=== PATIENT | female | born 1940 | race Caucasian/White ===

== ENCOUNTER 2018-02-02 16:20 | Emergency (ER) | payer MEDICARE, BC ==
[2018-02-02] MEDS ORDERED: DIPH,PERTUS(ACELL)TETVAC-LF 0.5 ML VIAL IM ONE (16:38)
[2018-02-02 16:42] VITALS: BP 136/67; PULSE 72; RESP 16; TEMP 98
--- NOTE | 2018-02-02 16:49 | ED ---
Animal Bite HPI - General Chief Complaint: Animal Bite Stated Complaint: Dog Bite Time Seen by Provider: 02/02/18 16:24 Source: patient, family, RN notes reviewed Mode of arrival: ambulatory Limitations: no limitations - History of Present Illness Initial Comments: This is a 77-year-old female who presents to the emergency department with chief complaint of dog bite. Patient is accompanied by her son-in-law. She states that prior to arrival her dog got into a fight with a neighborhood dog. She attempted to break it up and was bit by the neighborhood dog. She states that she sustained two bite wounds to her left hand. They state that they know where the dog lives and that it was off of its leash, but did not approach the owners. They state the dog is a small breed and appears to be a mutt. They know that the dog is not a stray. Patient states she is not up-to-date with her tetanus vaccination. She states that she is ALLERGIC to penicillins. - Related Data Home Medications Medication Instructions Recorded Confirmed Carbidopa-Levodopa 25-100 mg 2 tab PO BID@0600,1200 11/05/14 09/23/16 [Sinemet 25-100 mg] Cholecalciferol [Vitamin D3] 1,000 unit PO BID 11/05/14 09/23/16 Digoxin [Lanoxin] 125 mcg PO QAM 11/05/14 09/23/16 Lovastatin [Mevacor] 80 mg PO HS 11/05/14 09/24/16 Amantadine HCl [Symmetrel] 100 mg PO BID@0600,1200 06/30/15 09/23/16 Calcium Citrate 500 mg PO BID@1200,1700 06/30/15 09/24/16 Carbidopa-Levodopa 25-100 mg 1 tab PO DAILY@1700 06/30/15 09/24/16 [Sinemet 25-100 mg] Entacapone [Comtan] 200 mg PO TID@0600,1200,1700 06/30/15 09/23/16 Aspirin [Durlaza] 162.5 mg PO DAILY 09/23/16 09/24/16 Baclofen 10 mg PO HS 09/23/16 09/24/16 Ferrous Sulfate [Feosol] 325 mg PO DAILY 09/23/16 09/24/16 Lisinopril [Zestril] 2.5 mg PO 2100 09/23/16 09/23/16 Melatonin 3 mg PO HS PRN 09/23/16 09/23/16 Sertraline [Zoloft] 25 mg PO HS 09/23/16 09/23/16 Zolpidem [Ambien] 5 mg PO HS PRN 09/23/16 09/23/16 Previous Rx's Medication Instructions Recorded Acetaminophen Tab [Tylenol Tab] 650 mg PO Q6H #60 tablet 07/05/15 Carvedilol [Coreg] 6.25 mg PO BID #1 tab 07/05/15 Sennosides-Docusate Sodium 2 each PO HS tab 07/05/15 [Senokot-S] Clindamycin [Cleocin] 450 mg PO TID #63 cap 02/02/18 Sulfamethox-Tmp 800-160Mg [Bactrim 1 tab PO Q12HR #14 tab 02/02/18 DS 800-160 mg] Allergies Allergy/AdvReac Type Severity Reaction Status Date / Time Penicillins Allergy Rash/Hives Verified 09/23/16 13:23 Review of Systems ROS Statement: Those systems with pertinent positive or pertinent negative responses have been documented in the HPI. ROS Other: All systems not noted in ROS Statement are negative. Past Medical History Past Medical History: Hyperlipidemia, Hypertension, Osteoarthritis (OA) Additional Past Medical History / Comment(s): PARKINSONS History of Any Multi-Drug Resistant Organisms: None Reported Past Surgical History: AICD, Pacemaker Additional Past Surgical History / Comment(s): DEFIBRILATOR/ PACEMAKER Past Anesthesia/Blood Transfusion Reactions: No Reported Reaction Type of Cardiac Device: AICD Device Placement Date:: 2009 [employer] Past Psychological History: No Psychological Hx Reported Smoking Status: Unknown if ever smoked Past Alcohol Use History: None Reported Past Drug Use History: None Reported - Past Family History Father Family Medical History: Cancer Additional Family Medical History / Comment(s): colon cancer Mother Family Medical History: Cancer, Dementia Additional Family Medical History / Comment(s): breast cancer General Exam - General Exam Comments Initial Comments: General: Awake and alert, well-developed; in no apparent distress. Son-in-law is at bedside. HEENT: Head atraumatic, normocephalic. Pupils are equal, round and reactive to light. Extraocular movements intact. Oropharynx moist without erythema or exudate. Neck: Supple. Normal ROM. Cardiovascular: Regular rate and rhythm. No murmurs, rubs or gallops. Chest symmetrical. Respiratory: Lungs clear to auscultation bilaterally. No wheezes, rales or rhonchi. Normal respiratory effort with no use of accessory muscles. Musculoskeletal: Normal range of motion of digits on the left hand. There is a large hematoma overlying the dorsal aspect of the left hand. Approximately 2-1/ 2 cm stellate laceration proximal to MCP joint of the second digit. There is a second 1.5 cm "V-shaped" laceration webbing between digits 3 and 4. Sensation is intact. Radial pulses are 2+ equal and palpable bilaterally. Skin: [place], warm and dry without rashes or lesions. Neurological: Alert and oriented x3. CN II-XII grossly intact. Speech is fluent and answers are appropriate. No focal neuro deficits. Limitations: no limitations Course Vital Signs 02/02/18 16:31 Temperature 98.0 F Pulse Rate 72 Respiratory 16 Rate Blood Pressure 136/67 O2 Sat by Pulse 96 Oximetry Procedures - Laceration Laceration #1 Consent Obtained: verbal consent Indication: laceration Site: hand (webbing between digits 3 and 4 on left hand) Description: linear Depth: simple, single layer Anesthetic Used: lidocaine 1% Anesthesia Technique: local infiltration Amount (mls): 1 Pre-repair: wound explored, irrigated extensively, deep structures intact Type of Sutures: nylon Size of Sutures: 4-0 Number of Sutures: 2 Technique: simple, interrupted Patient Tolerated Procedure: well, no complications Laceration #2 Consent Obtained: verbal consent Indication: laceration Site: hand (Proximal to MCP joint second digit left hand) Size (cm): 3 Description: stellate Depth: simple, single layer Anesthetic Used: lidocaine 1% Anesthesia Technique: local infiltration Amount (mls): 2 Pre-repair: wound explored, irrigated extensively, deep structures intact Type of Sutures: nylon Size of Sutures: 5-0 Number of Sutures: 3 Technique: simple, interrupted Patient Tolerated Procedure: well, no complications Medical Decision Making - Medical Decision Making This is a 77-year-old female who presented to the emergency department for evaluation following a dog bite. Patient sustained 2 wounds to the left hand. X-ray was obtained and revealed no evidence for acute fractures or radiodense foreign bodies. Loose sutures were placed in both wounds and patient tolerated well without complication. She is neurovascularly intact. Dressings were placed. Patient was made up-to-date with her tetanus vaccination. She will be started on clindamycin and Bactrim. She is to have sutures removed in 10-14 days. Return parameters were discussed. It is reported that the dog is a neighborhood dog and that they will follow-up regarding vaccination status. Patient is in no acute distress and will be discharged home. She is in agreement with plan and voices understanding. All questions were answered. - Radiology Data Radiology results: report reviewed X-ray of left hand impression: There is no acute fracture or dislocation in the left hand. The overlying soft tissue appears unremarkable without radiodense foreign body appreciated. Disposition Clinical Impression: Dog bite Disposition: HOME SELF-CARE Condition: Good Instructions: Animal Bite (ED) Additional Instructions: Please take medications as prescribed. Please follow up with dog owners regarding vaccination status. Please have sutures removed in 10-14 days. Please monitor for any signs of infection including increased in redness, tenderness, or purulent drainage from the wound. Please follow up with primary care provider within 1-2 days. Return to emergency department if symptoms should worsen or any concerns arise. Prescriptions: Clindamycin [Cleocin] 450 mg PO TID #63 cap Sulfamethox-Tmp 800-160Mg [Bactrim DS 800-160 mg] 1 tab PO Q12HR #14 tab Referrals: Efe Arambula DO [Primary Care Provider] - 1-2 days Time of Disposition: 17:52
--- NOTE | 2018-02-02 17:07 | XR ---
EXAMINATION TYPE: XR hand complete LT DATE OF EXAM: 02/02/2018 CLINICAL HISTORY: Left hand pain after laceration dogbite injury today. TECHNIQUE: Frontal, lateral and oblique images of the left hand are obtained. COMPARISON: None. FINDINGS: [place] osseous structures are demineralized. There is no acute fracture/dislocation eviden t in the left hand. There is degenerative change throughout the phalanges with joint space loss and m ild spurring most prominent in the DIP joints and fourth PIP joint. Metallic ring overlies the fourth proximal phalanx midshaft. The overlying soft tissue appears unremarkable without radiodense foreign body appreciated. IMPRESSION: There is no acute fracture or dislocation in the left hand.
== END 2018-02-02 18:00 | disposition home or self-care (01) ==
LOC: EC 16:20
DX: S61.452A Open bite of left hand, initial encounter (principal); E78.5 Hyperlipidemia, unspecified; I10 Essential (primary) hypertension; G20 Parkinson's disease; Z23 Encounter for immunization; Z79.82 Long term (current) use of aspirin; Z79.899 Other long term (current) drug therapy; Z88.0 Allergy status to penicillin; W54.0XXA Bitten by dog, initial encounter
CPT/HCPCS: 12002; 90471; 90715; 99283

== ENCOUNTER 2018-12-29 19:39 | Emergency (ER) | payer MEDICARE, BC ==
[2018-12-29 19:47] VITALS: BP 148/83; PULSE 58; RESP 16; TEMP 97.7
--- NOTE | 2018-12-29 20:33 | XR ---
EXAMINATION TYPE: XR Hip RT and AP Pelvis DATE OF EXAM: 12/29/2018 COMPARISON: 07/02/2015 HISTORY: Pain TECHNIQUE: A single AP view of the pelvis is obtained. Two views of the right hip are obtained. FINDINGS: There is a right hip prosthesis. Pelvic ring is intact. Components appear in anatomic posit ion. Sacroiliac joints are intact. I see no fracture. IMPRESSION: Right hip prosthesis without change compared to old exam. No fracture seen.
[2018-12-29] MEDS ORDERED: HYDROcodone/APAP 5-325MG 1 EACH TAB PO STA (20:42)
[2018-12-29] MEDS ORDERED: KETOROLAC 30 MG/ML 1 ML VIAL IM STA (20:42)
--- NOTE | 2018-12-29 21:41 | ED ---
Fall HPI <Patrick Givens - Last Filed: 12/29/18 21:51> - General Source: patient, family Mode of arrival: wheelchair <Catalina Ko - Last Filed: 12/30/18 03:58> - General Chief Complaint: Fall Stated Complaint: Fall Time Seen by Provider: 12/29/18 20:14 - History of Present Illness Initial Comments: 78-year-old female patient presents to the emergency department today for evaluation of right hip pain. Patient states around 4 to 5:00 this afternoon she was coming down some stairs, states that she got to the bottom of her feet tangled and she fell landing on the right hip. Patient states she has Parkinson 's disease and this does often happen to her. She denies hitting her head or losing consciousness during the fall. States that she was having significant pain to the right hip and difficulty with ambulation. Denies any radiation of the pain down the leg. Denies any numbness or tingling to the extremity. Denies any other injuries. She denies any use of anticoagulant medications however does take aspirin. Patient denies any headache, neck pain, back pain, chest pain, shortness of breath, dizziness, weakness, abdominal pain, nausea, vomiting, or difficulties with bowel movements or urination. (Catalina Ko ) - Related Data Home Medications Medication Instructions Recorded Confirmed Cholecalciferol [Vitamin D3] 1,000 unit PO BID@0900,1700 11/05/14 12/29/18 Digoxin [Lanoxin] 62.5 mcg PO QAM 11/05/14 12/29/18 Amantadine HCl [Symmetrel] 100 mg PO BID@0900,1700 06/30/15 12/29/18 Calcium Citrate 500 mg PO BID@0900,1700 06/30/15 12/29/18 Carbidopa-Levodopa 25-100 mg 1 tab PO TID@0600,1200,1700 06/30/15 12/29/18 [Sinemet 25-100 mg] Baclofen 10 mg PO HS 09/23/16 12/29/18 Ferrous Sulfate [Feosol] 325 mg PO DAILY@1200 09/23/16 12/29/18 Lisinopril [Zestril] 2.5 mg PO BID@0900,2100 09/23/16 12/29/18 Melatonin 3 mg PO HS PRN 09/23/16 12/29/18 Aspirin [Adult Low Dose Aspirin EC] 81 mg PO DAILY@1200 12/29/18 12/29/18 Carvedilol [Coreg] 6.25 mg PO BID@0900,1700 12/29/18 12/29/18 Doxylamine Succinate [Unisom] 25 mg PO HS PRN 12/29/18 12/29/18 QUEtiapine FUMARATE 25 mg PO HS 12/29/18 12/29/18 Sennosides-Docusate Sodium 2 tab PO HS 12/29/18 12/29/18 [Senokot-S] Previous Rx's Medication Instructions Recorded Ibuprofen [Motrin] 600 mg PO Q8HR PRN #30 tab 12/29/18 Allergies Allergy/AdvReac Type Severity Reaction Status Date / Time Penicillins Allergy Rash/Hives Verified 12/29/18 20:04 Review of Systems ROS Other: All systems not noted in ROS Statement are negative. <Patrick Givens - Last Filed: 12/29/18 21:51> ROS Other: All systems not noted in ROS Statement are negative. <Catalina Ko - Last Filed: 12/30/18 03:58> ROS Statement: Those systems with pertinent positive or pertinent negative responses have been documented in the HPI. Past Medical History Past Medical History: Hyperlipidemia, Hypertension, Osteoarthritis (OA) Additional Past Medical History / Comment(s): PARKINSONS History of Any Multi-Drug Resistant Organisms: None Reported Past Surgical History: AICD, Pacemaker Additional Past Surgical History / Comment(s): DEFIBRILATOR/ PACEMAKER Past Anesthesia/Blood Transfusion Reactions: No Reported Reaction Type of Cardiac Device: AICD Device Placement Date:: 2009 [employer] Past Psychological History: No Psychological Hx Reported Smoking Status: Unknown if ever smoked Past Alcohol Use History: None Reported Past Drug Use History: None Reported - Past Family History Father Family Medical History: Cancer Additional Family Medical History / Comment(s): colon cancer Mother Family Medical History: Cancer, Dementia Additional Family Medical History / Comment(s): breast cancer <Catalina Ko - Last Filed: 12/30/18 03:58> General Exam Limitations: no limitations General appearance: alert, in no apparent distress, other (This is a well- developed, well-nourished elderly female patient in no acute distress. Vital signs upon presentation are temperature 97.7F, pulse 88, respirations 16, blood pressure 148/83, pulse ox 97% on room air.) Eye exam: Present: normal appearance, PERRL, EOMI. Absent: scleral icterus, conjunctival injection, periorbital swelling ENT exam: Present: normal exam, normal oropharynx, mucous membranes moist Respiratory exam: Present: normal lung sounds bilaterally. Absent: respiratory distress, wheezes, rales, rhonchi, stridor Cardiovascular Exam: Present: regular rate, normal rhythm, normal heart sounds. Absent: systolic murmur, diastolic murmur, rubs, gallop, clicks GI/Abdominal exam: Present: soft, normal bowel sounds. Absent: distended, tenderness, guarding, rebound, rigid Extremities exam: Present: normal inspection, full ROM, tenderness (Right lateral hip tenderness.), normal capillary refill, other (No deformity or evidence of surface trauma to the right hip. Skin is pink, warm, and dry. Cap refills less than 3 seconds. Pedal and posttibial pulses are 2+ and equal bilaterally. There is no shortening or rotation of the right leg. Patient does have full passive range of motion of the hip, does report increased pain with flexion.). Absent: pedal edema, joint swelling, calf tenderness Neurological exam: Present: alert, oriented X3, CN II-XII intact Psychiatric exam: Present: normal affect, normal mood Skin exam: Present: warm, dry, intact, normal color. Absent: rash <Catalina Ko M - Last Filed: 12/30/18 03:58> Course <Patrick Givens - Last Filed: 12/29/18 21:51> <Catalina Ko - Last Filed: 12/30/18 03:58> Vital Signs 12/29/18 19:42 Temperature 97.7 F Pulse Rate 58 L Respiratory 16 Rate Blood Pressure 148/83 O2 Sat by Pulse 97 Oximetry - Reevaluation(s) Reevaluation #1: 12/29/18 21:51 [employer] supervision: I proceeded [id number] evaluation patient did discuss the findings with her and her family. Patient did slip and fall laying on her right hip which was operated with a total hip replacement. No evidence of any dislocation or fractures. I do agree with the assessment and plan. Patient will be discharged. (ChonPatrick) Medical Decision Making <Patrick Givens - Last Filed: 12/29/18 21:51> - Radiology Data Radiology results: report reviewed, image reviewed <Catalina Ko - Last Filed: 12/30/18 03:58> - Medical Decision Making 78-year-old female patient presented to the emergency department today for evaluation of right hip pain after expressing a fall. Physical examination did reveal some right lateral hip tenderness. Patient fully range of motion. No shortening or rotation. Neurovascular status was intact. X-ray of the right hip showed an intact prosthesis with no evidence for fracture. Patient did receive pain medication here in the emergency department. She was ambulatory without difficulty. She will be discharged home at this time to follow-up with her primary care physician for recheck in 1-2 days. Return parameters were discussed in detail. She verbalizes understanding and agrees with this plan. (Catalina Ko) - Radiology Data Single AP view of the pelvis is obtained. 2 views of the right hip are obtained. Report is reviewed in its entirety. Impression by Dr. Engle shows right hip prosthesis without change compared to old exam. No fracture seen. (Catalina Ko) Disposition <Patrick Givens - Last Filed: 12/29/18 21:51> Is patient prescribed a controlled substance at d/c from ED?: No Time of Disposition: 21:41 <Catalina Ko - Last Filed: 12/30/18 03:58> Clinical Impression: Contusion of right hip Disposition: HOME SELF-CARE Condition: Good Instructions (If sedation given, give patient instructions): Fall Prevention for Older Adults (ED), Hip Contusion (ED) Additional Instructions: Take Motrin for pain control. Apply ice to the painful areas. Consider taking an [id number] stool softener. Follow-up with her primary care physician for recheck in 1-2 days. Return to the emergency department immediately for any new, worsening, or concerning symptoms. Prescriptions: Ibuprofen [Motrin] 600 mg PO Q8HR PRN #30 tab PRN Reason: Pain Referrals: Efe Arambula DO [Primary Care Provider] - 1-2 days
== END 2018-12-29 22:14 | disposition home or self-care (01) ==
LOC: EC 19:39
DX: S70.01XA Contusion of right hip, initial encounter (principal); I10 Essential (primary) hypertension; G20 Parkinson's disease; M19.90 Unspecified osteoarthritis, unspecified site; Z85.810 Personal history of malignant neoplasm of tongue; Z95.0 Presence of cardiac pacemaker; Z96.641 Presence of right artificial hip joint; Z79.82 Long term (current) use of aspirin; Z79.899 Other long term (current) drug therapy; Z88.0 Allergy status to penicillin; W10.9XXA Fall (on) (from) unspecified stairs and steps, initial encounter; Y92.009 Unspecified place in unspecified non-institutional (private) residence as the place of occurrence of the external cause
CPT/HCPCS: 73502; 96372; 99283